=== PATIENT | male | born 1935 | race Caucasian/White ===

== ENCOUNTER 2024-07-23 09:28 | Observation (INO) | payer MEDICARE, OTHER, SELFPAY ==
[2024-07-23] VITALS (16 sets, daily range): BP systolic 108–193; BP diastolic 62–101; PULSE 65–90; RESP 11–20; TEMP 36.1–37.4; O2SAT 94–99; BMI 23.7
--- NOTE | 2024-07-23 09:30 | DI.CT.S_ITS ---
PROCEDURE: CT STROKE INDICATIONS: Slurred speech TECHNIQUE: Noncontrast 4.5 mm thick angled axial sections acquired from the foramen magnum to the vertex, with coronal reformats. For radiation dose reduction, the following was used: automated exposure control, adjustment of mA and/or kV according to patient size. COMPARISON: None. FINDINGS: Image quality: Excellent CSF spaces: Basal cisterns are patent. Lateral ventricles are symmetric. Volume: Vascular calcifications. Periventricular white matter disease is commonly seen with chronic microangiopathy. Volume loss is present. These findings are moderate Brain: No gross loss of solorio-white differentiation. Suspected basal ganglia mineralization. Craniofacial structures: Mild ethmoid mucosal thickening. IMPRESSION: No acute intracranial hemorrhage. If there is high concern for infarct, consider MRI. This study fulfills neurological imaging criteria for inclusion or exclusion of acute stroke therapies based on available published neurological imaging guidelines. Called to [place] by Jeremy at the timestamp below. Dictated by: Yadiel Luna M.D. on 07/23/2024 at 9:42 Approved by: Yadile Luna M.D. on 07/23/2024 at 9:45
--- NOTE | 2024-07-23 09:34 | ED.NEUROSD ---
HPI - Neuro Symptoms/Deficit General Chief Complaint: Neuro Symptoms/Deficit Stated Complaint: TIA Time Seen by Provider: 07/23/24 09:30 History of Present Illness HPI Narrative: Patient is a 88-year-old male history of TIA, hyperlipidemia, hypertension not on any blood thinners comes into the ED via EMS for evaluation of slurred speech and word-finding that has since resolved last known normal was approximately 30 minutes ago. To note patient initially evaluated with a systolic blood pressure of 226, does not take any antihypertensive. Patient was immediately brought to CT scan and stroke alert was called. At time of my evaluation patient is A&O x4, no focal deficits not complaining of any headache visual disturbances no chest pain shortness breath fever chills nausea vomiting abdominal pain or any other GI/ symptoms time. Related Data Home Medications Medication Instructions Recorded Confirmed aspirin 81 mg tablet,delayed 81 mg PO QDAY ##0 08/09/17 release atorvastatin 10 mg tablet (Lipitor) 10 mg PO QDAY ##0 08/09/17 losartan 50 mg tablet 50 mg PO QDAY ##0 08/09/17 multivitamin (Multiple Vitamins 1 tab PO QDAY ##0 08/09/17 tablet) omega 3-ohk-mvq-fish oil 1,000 mg 1,200 mg PO ##0 08/09/17 (120 mg-180 mg) capsule (Fish Oil) Allergies Allergy/AdvReac Type Severity Reaction Status Date / Time No Known Allergies Allergy Uncoded 01/30/18 13:03 Review of Systems Review of Systems Narrative: General: Denies fever, chills, weight loss HEENT: Denies headache, eye drainage, eye irritation, head trauma, sore throat, voice change Cardiovascular: Denies any chest pain, palpitations, shortness of breath, tachycardia Respiratory: Denies any shortness of breath, cough, wheeze, stridor GI/: Denies any abdominal pain, nausea, vomiting, diarrhea, bright red blood per rectum, melanotic stools, urinary frequency, urinary retention, dysuria, hematuria MSK: Denies any joint pain, muscle pains, swelling Skin: Denies any rashes, lesions, discoloration Neuro: Denies any headache, lightheadedness, dizziness, fainting, weakness, positive for resolved slurred speech word-finding issues Psych: Denies SI/HI Patient History Social History Smoking Status: Current some day smoker Exam Narrative Exam Narrative: General: Cooperative, comfortable, well-developed, not in acute distress HEENT: Normocephalic, atraumatic, PERRLA, normal sclera, eyelids normal, Neck: Active full range of motion, atraumatic Chest: Normal to inspection, negative crepitus, no overlying erythema ecchymosis Respiratory: Normal respiratory effort, not in acute respiratory distress, clear to auscultation bilaterally negative cough, wheeze, tachypnea, rhonchi, rales Cardiology: Regular rate rhythm negative gallop, murmur, rubs GI/: Normal to inspection, soft, nonrigid, no tenderness to palpation, exam deferred MSK: Full range of active range of motion of all 4 extremities, atraumatic Skin: No rashes lesions noted Neuro: Alert awake oriented x3, moves all 4 extremities spontaneously, cranial nerves intact, able to answer all questions appropriately follows commands appropriately, NIH of 0 Psych: Cooperative, negative suicidal or homicidal ideations Initial Vital Signs Initial Vital Signs: Vital Signs Pulse Rate 86 07/23/24 09:23 Respiratory Rate 16 07/23/24 09:23 Blood Pressure 136/99 H 07/23/24 09:23 Pulse Oximetry 98 07/23/24 09:23 Oxygen Delivery Method Room Air 07/23/24 09:23 Scores NIH Stroke Scale Level of Conciousness: Alert, keenly responsive Ask month/age: Answers both questions correctly. Open/close eyes, close hand: Performs both tasks correctly Best gaze horizontal: Normal Visual linn: No visual loss Facial palsy: Normal symetrical movement Left arm drift: No drift for full 10 sec Right arm drift: No drift for full 10 sec Left leg drift: No drift for full 5 sec Right leg drift: No drift for full 5 sec Limb ataxia: Absent Sensory on face/arms/legs: Normal, no sensory loss Best language: No aphasia, normal Dysarthria: Normal Extinction or inattention: No abnormality Total NIH Stroke scale score: 0 Course Orders Ordered: ED Orders 07/23/24 09:30 CT Stroke Stat Complete Blood Count AUTO DIFF Stat Comprehensive Metabolic Panel Stat Ethanol (ETOH) Stat PTT Partial Thromboplastin Dariel Stat Prothrombin Time INR Stat Troponin & CK Cardiac Panel Stat EKG-12 Lead Stat 07/23/24 09:55 COVID19 -Nasal RAPID Stat 07/23/24 10:00 CT angio head and neck Stat 07/23/24 10:40 Urinalysis and Microscopic Stat Urine Drug Screen, Rapid Stat Vital Signs Vital signs: Vital Signs - 8 hr 07/23/24 09:23 07/23/24 09:44 07/23/24 09:44 Pulse Rate 86 65 Respiratory Rate 16 Blood Pressure 136/99 H 136/99 H Pulse Oximetry 98 98 99 Oxygen Delivery Method Room Air 07/23/24 10:00 07/23/24 10:00 07/23/24 10:30 Pulse Rate 81 Respiratory Rate 11 L Blood Pressure 151/96 H 193/98 H Pulse Oximetry 97 Oxygen Delivery Method 07/23/24 10:30 07/23/24 11:00 07/23/24 11:01 Pulse Rate 78 78 75 Respiratory Rate 19 16 17 Blood Pressure Pulse Oximetry 98 97 97 Oxygen Delivery Method 07/23/24 11:01 07/23/24 11:30 07/23/24 11:30 Pulse Rate 75 Respiratory Rate 18 Blood Pressure 171/91 H 167/99 H Pulse Oximetry 96 Oxygen Delivery Method Room Air MDM - Neuro Symptoms/Deficit Differential Diagnosis Differential diagnosis: Likely subarachnoid hemorrhage, cerebrovascular accident, transient cerebral ischemia and other (ACS, electrolyte abnormality) Medical Records Attestation: I reviewed the patient's medical records. Lab Data 07/23/24 09:30 07/23/24 09:30 Labs: Lab Results 07/23/24 07/23/24 07/23/24 Range/Units 09:30 09:55 10:40 WBC 7.7 (4.5-11.0) X10^3/uL RBC 5.57 (4.5-5.9) X10^6/uL Hgb 16.7 (13.5-17.5) g/dL Hct 48.5 (41-53) % MCV 87.1 (80-100) fL MCH 30.0 (26-34) PG MCHC 34.4 (30-36) % RDW 13.8 (11.6-14.8) % Plt Count 180 (150-400) X10^3/uL Neut % (Auto) 59.6 (50-75) % Lymph % (Auto) 26.6 (25-40) % Gulf % (Auto) 8.5 (3-14) % Eos % (Auto) 4.1 H (2-4) % Baso % (Auto) 1.2 (0-2) % Neut # (Auto) 4600 (5434-6560) /uL Lymph # (Auto) 2100 (4535-1483) /uL [place] # (Auto) 700 (0-900) /uL Eos # (Auto) 300 (0-450) /uL Baso # (Auto) 100 (0-100) /uL PT 12.2 (9.4-12.5) SECONDS INR 1.1 (0.9-1.3) APTT 32 (25.1-36.5) SECONDS Sodium 134 L (137-145) mmol/L Potassium 3.9 (3.4-5.1) mmol/L Chloride 103 (98-107) mmol/L Carbon Dioxide 20 L (22-32) mmol/L BUN 20 (9-20) mg/dL Creatinine 1.10 (0.66-1.25) mg/dL Estimated GFR > 60 (>60) mL/min BUN/Creatinine Ratio 18.2 (6-22) Glucose 167 H (80-110) mg/dL Calcium 9.9 (8.4-10.2) mg/dL Total Bilirubin 2.0 H (0.2-1.3) mg/dL AST 26 (17-59) IU/L ALT 21 (<50) IU/L Alkaline Phosphatase 97 (38-126) U/L Total Creatine Kinase 38 L (55-170) U/L Troponin I < 0.012 (0.01-0.034) ng/mL Total Protein 7.9 (6.3-8.2) g/dL Albumin 4.4 (3.5-5.0) g/dL Globulin 3.5 (1.7-4.1) g/dL Albumin/Globulin Ratio 1.3 (1.0-2.8) Urine Color Yellow Urine Appearance Clear Urine pH 5.5 (4.5-8.0) Ur Specific [place] 1.010 (1.000-1.035) Urine Protein Negative (Negative) Urine Glucose (UA) Negative (Negative) g/dL Urine Ketones Negative (NEGATIVE) Urine Occult Blood Negative (Negative) Urine Nitrate Negative (Negative) Urine Bilirubin Negative (NEGATIVE) Urine Urobilinogen 0.2 (0.2) E.U./dL Ur Leukocyte Esterase Negative (NEGATIVE) Urine RBC None seen (0-5/HPF) Urine WBC None seen (0-5/HPF) Ur Squamous Epith Cells None seen (0-5/HPF) Urine Bacteria None seen (None) Ur Culture Indicated? Cult not indicated Vol Urine Centrifuged 10ml (spun) U Opiates 300ng/mL cut Negative (Negative) Ur Oxycodone Screen Negative (Negative) Urine Methadone Screen Negative (Negative) Ur Barbiturates Screen Negative (Negative) U Tricyclic Antidepress Negative (Negative) Ur Phencyclidine Scrn Negative (Negative) Ur Amphetamines Screen Negative (Negative) U Methamphetamines Scrn Negative (Negative) Ur MDMA Scrn (Ecstasy) Negative (Negative) U Benzodiazepines Scrn Negative (Negative) Urine Cocaine Screen Negative (Negative) U Marijuana (THC) Screen Negative (Negative) Urine Specific [place] (Normal) Ethyl Alcohol 30 H ( - 10) mg/dL Ur Creatinine (Normal) SARS-CoV-2 (PCR) Negative (Negative) 07/23/24 Range/Units 10:40 WBC (4.5-11.0) X10^3/uL RBC (4.5-5.9) X10^6/uL Hgb (13.5-17.5) g/dL Hct (41-53) % MCV (80-100) fL MCH (26-34) PG MCHC (30-36) % RDW (11.6-14.8) % Plt Count (150-400) X10^3/uL Neut % (Auto) (50-75) % Lymph % (Auto) (25-40) % [place] % (Auto) (3-14) % Eos % (Auto) (2-4) % Baso % (Auto) (0-2) % Neut # (Auto) (6048-2900) /uL Lymph # (Auto) (2572-7151) /uL [place] # (Auto) (0-900) /uL Eos # (Auto) (0-450) /uL Baso # (Auto) (0-100) /uL PT (9.4-12.5) SECONDS INR (0.9-1.3) APTT (25.1-36.5) SECONDS Sodium (137-145) mmol/L Potassium (3.4-5.1) mmol/L Chloride (98-107) mmol/L Carbon Dioxide (22-32) mmol/L BUN (9-20) mg/dL Creatinine (0.66-1.25) mg/dL Estimated GFR (>60) mL/min BUN/Creatinine Ratio (6-22) Glucose (80-110) mg/dL Calcium (8.4-10.2) mg/dL Total Bilirubin (0.2-1.3) mg/dL AST (17-59) IU/L ALT (<50) IU/L Alkaline Phosphatase (38-126) U/L Total Creatine Kinase (55-170) U/L Troponin I (0.01-0.034) ng/mL Total Protein (6.3-8.2) g/dL Albumin (3.5-5.0) g/dL Globulin (1.7-4.1) g/dL Albumin/Globulin Ratio (1.0-2.8) Urine Color Urine Appearance Urine pH Normal (4.5-8.0) Ur Specific [place] (1.000-1.035) Urine Protein (Negative) Urine Glucose (UA) (Negative) g/dL Urine Ketones (NEGATIVE) Urine Occult Blood (Negative) Urine Nitrate (Negative) Urine Bilirubin (NEGATIVE) Urine Urobilinogen (0.2) E.U./dL Ur Leukocyte Esterase (NEGATIVE) Urine RBC (0-5/HPF) Urine WBC (0-5/HPF) Ur Squamous Epith Cells (0-5/HPF) Urine Bacteria (None) Ur Culture Indicated? Vol Urine Centrifuged U Opiates 300ng/mL cut (Negative) Ur Oxycodone Screen (Negative) Urine Methadone Screen (Negative) Ur Barbiturates Screen (Negative) U Tricyclic Antidepress (Negative) Ur Phencyclidine Scrn (Negative) Ur Amphetamines Screen (Negative) U Methamphetamines Scrn (Negative) Ur MDMA Scrn (Ecstasy) (Negative) U Benzodiazepines Scrn (Negative) Urine Cocaine Screen (Negative) U Marijuana (THC) Screen (Negative) Urine Specific [place] Normal (Normal) Ethyl Alcohol ( - 10) mg/dL Ur Creatinine Normal (Normal) SARS-CoV-2 (PCR) (Negative) Point of Care Testing Glucose POC 162 Urine Dip Bedside Urine Glucose Negative Bedside Urine Bilirubin - Negative Bedside Urine Ketone - Negative Urine Specific [place] 1.015 Bedside Urine Occult Blood - Negative Bedside Urine pH 5.5 Bedside Urine Protein - Negative Bedside Urine Urobilinogen - Negative Bedside Urine Nitrite - Negative Bedside Urine Leukocytes - Negative Esterase Imaging Data CT scan - head: Radiologist's Impression: PROCEDURE: CT STROKE INDICATIONS: Slurred speech TECHNIQUE: Noncontrast 4.5 mm thick angled axial sections acquired from the foramen magnum to the vertex, with coronal reformats. For radiation dose reduction, the following was used: automated exposure control, adjustment of mA and/or kV according to patient size. COMPARISON: None. FINDINGS: Image quality: Excellent CSF spaces: Basal cisterns are patent. Lateral ventricles are symmetric. Volume: Vascular calcifications. Periventricular white matter disease is commonly seen with chronic microangiopathy. Volume loss is present. These findings are moderate Brain: No gross loss of solorio-white differentiation. Suspected basal ganglia mineralization. Craniofacial structures: Mild ethmoid mucosal thickening. IMPRESSION: No acute intracranial hemorrhage. If there is high concern for infarct, consider MRI. This study fulfills neurological imaging criteria for inclusion or exclusion of acute stroke therapies based on available published neurological imaging guidelines. CT angio head and neck: Radiologist's Impression: PROCEDURE: CT ANGIO HEAD AND NECK INDICATIONS: Slurred speech TECHNIQUE: After the administration of intravenous contrast, 1 mm thick sections acquired from the aortic arch through the [place] of [place]. 3-dimensional jyukvsh-cppnwphgs-iqbrrhcwzv (MIP) and/or volume rendering reformats were acquired of the central intracranial vasculature and neck separately. For radiation dose reduction, the following was used: automated exposure control, adjustment of mA and/or kV according to patient size. COMPARISON: [facility], CT, CT STROKE, 07/23/2024, 9:36. FINDINGS: Image quality: Diagnostic. BRAIN: CSF spaces: Ventricles are normal in size and shape. Basal cisterns are patent. No extra-axial fluid collections. Brain: No significant abnormality of the brain can be seen. Skull and face: Calvarium and facial bones appear intact, without suspicious lesions. Orbits appear normal. Sinuses: Sinuses and mastoids are clear. HEAD CT ANGIOGRAPHY: Anterior circulation: Intracranial internal carotid arteries are normal in size and flow. The flow within the paired anterior cerebral arteries is normal and symmetric. The flow within the middle cerebral arteries is normal and symmetric. The anterior communicating artery is seen. No aneurysms are seen. Posterior circulation: Visualized portions of the vertebral arteries demonstrate normal caliber, and join to form a normal appearing basilar artery. Flow within the posterior cerebral arteries is normal and symmetric. No aneurysms are seen. NECK CT ANGIOGRAPHY: Carotid system: The great vessels demonstrate a conventional anatomy as they arise from the aortic arch. The origins of the common carotid arteries appear patent. The common carotid arteries demonstrate normal caliber and courses. The bifurcation regions are both involved by significantly prominent atherosclerotic calcific and soft plaquing but appear patent. There is less than 50% stenosis on the left and approximately 50-60% stenosis on right as result at the bifurcation The internal carotid arteries demonstrate normal calibers and courses. Posterior circulation: The origins of the vertebral arteries both appear widely patent. The more superior extracranial portions of both vertebral arteries also demonstrate normal courses and calibers. They join to form a normal appearing basilar artery. Soft tissues: Visualized neck soft tissues demonstrate no suspicious abnormalities. Bones: No suspicious bony lesions. Visualized cervical spine appears normally aligned. IMPRESSION: No significant intracranial arterial abnormality is seen. Within the neck there is right greater than left calcific and soft plaquing with approximately 50-60% stenosis at the carotid bifurcation on the right and slightly less than 50% stenosis on the left. ECG Data Attestation: I personally reviewed and interpreted this ECG as follows: Interpretation: EKG interpreted ED physician sinus at 81 beats per minute, occasional PVC noted, normal axis nonspecific ST changes no STEMI MDM Narrative Medical decision making narrative: Patient is a 88-year-old male history of TIA, hypertension, hyperlipidemia presents to the ED via EMS for evaluation of slurred speech and word-finding difficulty that has since resolved last known normal was around 9:00 a.m.. Patient was sent directly to CT scan for stroke alert. States that he has not been taking any of his medications for about a year. Given patient with symptoms of TIA patient will require admission for TIA workup 0943: Discussed case with radiologist Dr. Luna, states negative CT head. 1011: Additional information was obtained by patient states that he does drink his coffee with a little bit of black Velvet whiskey on a daily basis. He also states that he has not been taking any of his medications for over a year this includes his statin and his antihypertensives, on re-evaluation patient's blood pressure improved without any administration of medication. The patient's management plan was discussed Dr. Ritter, who agrees to admit the patient to their service and assumes care of this patient at this time. Full admission orders will be placed by the primary team. Discharge Plan Departure Admit Date/Time: 07/23/24 11:52 Admit Provider: David Ritter
[2024-07-23 09:45] LABS: Add Manual Diff / Slide Review NO; Basophils Absolute Auto 100 /uL (0-100); Basophils Percent Auto 1.2 % (0-2); Eosinophils Absolute Auto 300 /uL (0-450); Eosinophils Percent Auto 4.1 % (2-4); Hematocrit 48.5 % (41-53); Hemoglobin 16.7 g/dL (13.5-17.5); Lymphocytes Absolute Auto 2100 /uL (1100-4500); Lymphocytes Percent Auto 26.6 % (25-40); Mean Corpuscular HGB Conc 34.4 % (30-36); Mean Corpuscular Volume 87.1 fL (80-100); Monocytes Absolute Auto 700 /uL (0-900); Monocytes Percent Auto 8.5 % (3-14); Neutrophils Absolute Auto 4600 /uL (1500-7000); Neutrophils Percent Auto 59.6 % (50-75); Platelet Count 180 X10^3/uL (150-400); Red Blood Cell Count 5.57 X10^6/uL (4.5-5.9); Red Cell Distribution Width 13.8 % (11.6-14.8); White Blood Cell Count 7.7 X10^3/uL (4.5-11.0)
--- NOTE | 2024-07-23 09:47 | EKG_ITS ---
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
--- NOTE | 2024-07-23 09:52 | PC.NURSE ---
Patient was at automotive store when he had a sudden onset of mumbled speech, difficulty finding words and balance issues. patient states he felt the right side of his face was having difficulty moving. Upon arrival of EMS symptoms resolved. Hypertensive per EMS. Upon arrival to ER asymptomatic.
[2024-07-23 09:53] LABS: INR 1.1 (0.9-1.3); Prothrombin Time 12.2 SECONDS (9.4-12.5)
[2024-07-23 09:55] LABS: PTT Partial Thromboplastin Tim 32 SECONDS (25.1-36.5)
[2024-07-23 09:58] LABS: Alanine Aminotransferase 21 IU/L (<50); Albumin 4.4 g/dL (3.5-5.0); Albumin Globulin Ratio 1.3 (1.0-2.8); Alkaline Phosphatase 97 U/L (38-126); Aspartate Aminotransferase 26 IU/L (17-59); BUN Creatinine Ratio 18.2 (6-22); Blood Urea Nitrogen 20 mg/dL (9-20); Calcium 9.9 mg/dL (8.4-10.2); Carbon Dioxide 20 mmol/L (22-32); Chloride 103 mmol/L (98-107); Creatine Kinase 38 U/L (55-170); Estimated Glomerular Filt Rate > 60 mL/min (>60); Ethanol (ETOH) 30 mg/dL; Globulin 3.5 g/dL (1.7-4.1); Glucose 167 mg/dL (80-110); HEMOLYSIS 15 (0-50); Potassium 3.9 mmol/L (3.4-5.1); Sodium 134 mmol/L (137-145); Total Protein 7.9 g/dL (6.3-8.2)
--- NOTE | 2024-07-23 10:00 | DI.CT.S_ITS ---
PROCEDURE: CT ANGIO HEAD AND NECK INDICATIONS: Slurred speech TECHNIQUE: After the administration of intravenous contrast, 1 mm thick sections acquired from the aortic arch through the [place] of [place]. 3-dimensional reeldqg-rhnhgsnad-srhobaveii (MIP) and/or volume rendering reformats were acquired of the central intracranial vasculature and neck separately. For radiation dose reduction, the following was used: automated exposure control, adjustment of mA and/or kV according to patient size. COMPARISON: [facility], CT, CT STROKE, 07/23/2024, 9:36. FINDINGS: Image quality: Diagnostic. BRAIN: CSF spaces: Ventricles are normal in size and shape. Basal cisterns are patent. No extra-axial fluid collections. Brain: No significant abnormality of the brain can be seen. Skull and face: Calvarium and facial bones appear intact, without suspicious lesions. Orbits appear normal. Sinuses: Sinuses and mastoids are clear. HEAD CT ANGIOGRAPHY: Anterior circulation: Intracranial internal carotid arteries are normal in size and flow. The flow within the paired anterior cerebral arteries is normal and symmetric. The flow within the middle cerebral arteries is normal and symmetric. The anterior communicating artery is seen. No aneurysms are seen. Posterior circulation: Visualized portions of the vertebral arteries demonstrate normal caliber, and join to form a normal appearing basilar artery. Flow within the posterior cerebral arteries is normal and symmetric. No aneurysms are seen. NECK CT ANGIOGRAPHY: Carotid system: The great vessels demonstrate a conventional anatomy as they arise from the aortic arch. The origins of the common carotid arteries appear patent. The common carotid arteries demonstrate normal caliber and courses. The bifurcation regions are both involved by significantly prominent atherosclerotic calcific and soft plaquing but appear patent. There is less than 50% stenosis on the left and approximately 50-60% stenosis on right as result at the bifurcation The internal carotid arteries demonstrate normal calibers and courses. Posterior circulation: The origins of the vertebral arteries both appear widely patent. The more superior extracranial portions of both vertebral arteries also demonstrate normal courses and calibers. They join to form a normal appearing basilar artery. Soft tissues: Visualized neck soft tissues demonstrate no suspicious abnormalities. Bones: No suspicious bony lesions. Visualized cervical spine appears normally aligned. IMPRESSION: No significant intracranial arterial abnormality is seen. Within the neck there is right greater than left calcific and soft plaquing with approximately 50-60% stenosis at the carotid bifurcation on the right and slightly less than 50% stenosis on the left. Any quantitative measurements of stenosis were performed using NASCET criteria. Dictated by: Juanito Cantrell M.D. on 07/23/2024 at 10:32 Approved by: Juanito Cantrell M.D. on 07/23/2024 at 10:34
[2024-07-23 10:09] LABS: Troponin I < 0.012 ng/mL (0.01-0.034)
[2024-07-23 10:22] LABS: COVID19 -Nasal RAPID Negative (Negative)
[2024-07-23 10:51] LABS: Appearance Urine UA CLEAR; Bilirubin Urine UA NEGATIVE (NEGATIVE); Color Urine UA YELLOW; Glucose Urine UA NEGATIVE (Negative); Ketones Urine UA NEGATIVE (NEGATIVE); Leukocyte Esterase Urine UA NEGATIVE (NEGATIVE); Nitrite Urine UA NEGATIVE (Negative); Occult Blood Urine UA NEGATIVE (Negative); Protein Urine UA NEGATIVE (Negative); Urobilinogen Urine UA 0.2 E.U./dL (0.2); pH Urine UA 5.5 (4.5-8.0)
[2024-07-23 10:54] LABS: Ur Creatinine Normal (Normal); Ur Specific Gravity Normal (Normal); Urine Amphetamines Negative (Negative); Urine Barbiturates Negative (Negative); Urine Benzodiazepines Negative (Negative); Urine Cocaine Negative (Negative); Urine MDMA Negative (Negative); Urine Methadone Negative (Negative); Urine Methamphetamines Negative (Negative); Urine Opiates Negative (Negative); Urine Oxycodone Negative (Negative); Urine Phencyclidine Negative (Negative); Urine THC Negative (Negative); Urine Tricyclic Antidepressant Negative (Negative); Urine pH Normal (Normal)
[2024-07-23 10:56] LABS: Urine Volume 10mL (spun)
[2024-07-23 10:57] LABS: Bacteria Urine None Seen; Culture Indicated Urine Cult Not Indicated; RBC Urine None Seen (0-5/HPF); Squamous Epithelial Cell Urine None Seen (0-5/HPF); WBC Urine None Seen (0-5/HPF)
--- NOTE | 2024-07-23 12:30 | DI.MRI.S_ITS ---
PROCEDURE: MR HEAD/BRAIN WO CON INDICATIONS: TIA vs CVA, facial droop TECHNIQUE: Non-contrast axial T1 spin echo, axial T2 fast spin echo, sagittal and axial FLAIR, coronal T2 fast spin echo, axial gradient echo, axial diffusion and ADC through the brain. COMPARISON: [facility], CT, CT STROKE, 07/23/2024, 9:36. FINDINGS: Image quality: Excellent. CSF spaces: Ventricles appear symmetric in size and shape. Basal cisterns are patent. No extra-axial fluid collections. Brain: No intracranial bleeds or mass effects. There is cerebral volume loss for age. There are periventricular and deep white matter chronic small vessel ischemic changes. Brainstem appears normal. Diffusion-weighted images show no acute infarct. No chronic ischemic insults. Normal intravascular flow voids are present. Skull and face: Calvarial bone marrow is normal in signal. Bilateral lens replacements. Otherwise, the orbits are unremarkable. Sinuses: Mild mucosal thickening of the ethmoid air cells. Left maxillary sinus mucous retention cyst. The mastoids are clear. IMPRESSION: No acute or subacute infarct. No acute intracranial abnormalities. Age-related global volume loss and chronic microvascular ischemic changes are present. Dictated by: Stan Fernandez M.D. on 07/23/2024 at 15:15 Approved by: Stan Fernandez M.D. on 07/23/2024 at 15:17
[2024-07-23] MEDS: CLOPIDOGREL 75 MG TABLET 300 MG PO (13:59)
[2024-07-23] MEDS: ASPIRIN 81 MG CHEW TAB 324 MG PO (13:59)
--- NOTE | 2024-07-23 15:26 | PM.HP.1 ---
History of Present Illness History of Present Illness Date Patient Seen: 07/23/24 Time Patient Seen: 15:26 Chief complaint: TIA Narrative: This is an 88-year-old male with a past medical history of hypertension, hyperlipidemia, prior TIA who presented after a 5 minute episode of facial droop and slurred speech. He denied any facial numbness, unilateral weakness or numbness. He states his prior episodes were many years ago. Follows with a primary care provider in [place], and has been off of his medications for approximately a year. He has no recent complaints of chest pain, shortness on breath, palpitations. In the emergency room, the patient was hypertensive, but the remainder of his vitals were unremarkable. Lab work is also unremarkable he does have an elevated bilirubin which appears chronic. His alcohol level was 30. He denies any shaking or confusion when he stops drinking. Urinalysis was unremarkable as was a urine drug screen. COVID-19 was testing was negative. He was admitted for further evaluation for probable TIA with MRI and observation overnight. [facility] Medical History (Updated 07/23/24 @ 15:33 by David Ritter DO) TIA (transient ischemic attack) HTN (hypertension) Social History household members: spouse Smoking Status: Current some day smoker Meds Home Medications and Allergies Home Medications Medication Instructions Recorded Confirmed Type multivitamin (Multiple Vitamins 1 tab PO QDAY ##0 08/09/17 History tablet) Allergies Allergy/AdvReac Type Severity Reaction Status Date / Time No Known Drug Allergies Allergy Verified 07/23/24 13:25 Review of Systems Review of Systems Narrative: All other systems reviewed with the patient and are negative unless otherwise stated. Exam Vital Signs (past 8 hours): - 07/23/24 09:23 07/23/24 09:44 07/23/24 09:44 Temperature Pulse Rate 86 65 Respiratory Rate 16 Blood Pressure 136/99 H 136/99 H Pulse Oximetry 98 98 99 Oxygen Delivery Method Room Air Oxygen Flow Rate 07/23/24 10:00 07/23/24 10:00 07/23/24 10:30 Temperature Pulse Rate 81 Respiratory Rate 11 L Blood Pressure 151/96 H 193/98 H Pulse Oximetry 97 Oxygen Delivery Method Oxygen Flow Rate 07/23/24 10:30 07/23/24 11:00 07/23/24 11:01 Temperature Pulse Rate 78 78 75 Respiratory Rate 19 16 17 Blood Pressure Pulse Oximetry 98 97 97 Oxygen Delivery Method Oxygen Flow Rate 07/23/24 11:01 07/23/24 11:30 07/23/24 11:30 Temperature Pulse Rate 75 Respiratory Rate 18 Blood Pressure 171/91 H 167/99 H Pulse Oximetry 96 Oxygen Delivery Method Room Air Oxygen Flow Rate 07/23/24 12:00 07/23/24 12:00 07/23/24 12:30 Temperature Pulse Rate 74 Respiratory Rate 11 L Blood Pressure 168/101 H 192/95 H Pulse Oximetry 97 Oxygen Delivery Method Oxygen Flow Rate 07/23/24 12:30 07/23/24 12:40 07/23/24 12:45 Temperature 97.9 F 97.4 F L Pulse Rate 81 90 Respiratory Rate 20 16 Blood Pressure 153/64 H Pulse Oximetry 97 99 Oxygen Delivery Method Oxygen Flow Rate 0 07/23/24 14:02 07/23/24 14:02 Temperature 97.0 F L Pulse Rate 84 Respiratory Rate 16 Blood Pressure 179/99 H Pulse Oximetry 99 99 Oxygen Delivery Method Room Air Oxygen Flow Rate 0 0 Oxygen Delivery Method Room Air Oxygen Flow Rate 0 Narrative Exam Narrative: General:? Patient is well developed and well nourished, in no distress at this time. HEENT:? Normocephalic, atraumatic, extraocular muscles intact, oral pharynx is clear and mucous membranes are moist. Neck: supple and symmetric, trachea is midline, no cervical adenopathy. Negative for JVD Chest:? Normal AP diameter and contour without kyphoscoliosis, no tachypnea, equal chest rise bilaterally. Lungs:? CTA b/l no wheezing rhonchi or rales. Cardio:?RRR no m/r/g. Abdomen: S NT ND. No CVA tenderness. Musculoskeletal:? Muscle strength and tone are equal within normal limits, no deformity. Extremities: No edema or joint effusions. No cyanosis or clubbing. Skin:? Pale,? Warm to touch,dry and intact without rashes, ulcerations or petechiae.? Neuro:? Alert and orientated x3,? sensation to touch intact in all extremities, no gross deficits noted of cranial nerves. Psych:? Patient has a well-kept appearance, appropriate affect, mental status attitude thought context and judgment are appropriate for age. Objective ECG Impression: Normal sinus rhythm, no acute ischemia, right bundle branch block, occasional PVC as interpreted by me Labs 10/02/24 09:30 07/23/24 09:30 Labs: Laboratory Results - last 24 hr 07/23/24 07/23/24 07/23/24 09:30 09:55 10:40 WBC 7.7 RBC 5.57 Hgb 16.7 Hct 48.5 MCV 87.1 MCH 30.0 MCHC 34.4 RDW 13.8 Plt Count 180 Neut % (Auto) 59.6 Lymph % (Auto) 26.6 [place] % (Auto) 8.5 Eos % (Auto) 4.1 H Baso % (Auto) 1.2 Neut # (Auto) 4600 Lymph # (Auto) 2100 [place] # (Auto) 700 Eos # (Auto) 300 Baso # (Auto) 100 PT 12.2 INR 1.1 APTT 32 Sodium 134 L Potassium 3.9 Chloride 103 Carbon Dioxide 20 L BUN 20 Creatinine 1.10 Estimated GFR > 60 BUN/Creatinine Ratio 18.2 Glucose 167 H Calcium 9.9 Total Bilirubin 2.0 H AST 26 ALT 21 Alkaline Phosphatase 97 Total Creatine Kinase 38 L Troponin I < 0.012 Total Protein 7.9 Albumin 4.4 Globulin 3.5 Albumin/Globulin Ratio 1.3 Urine Color Yellow Urine Appearance Clear Urine pH 5.5 Ur Specific [place] 1.010 Urine Protein Negative Urine Glucose (UA) Negative Urine Ketones Negative Urine Occult Blood Negative Urine Nitrate Negative Urine Bilirubin Negative Urine Urobilinogen 0.2 Ur Leukocyte Esterase Negative Urine RBC None seen Urine WBC None seen Ur Squamous Epith Cells None seen Urine Bacteria None seen Ur Culture Indicated? Cult not indicated Vol Urine Centrifuged 10ml (spun) U Opiates 300ng/mL cut Negative Ur Oxycodone Screen Negative Urine Methadone Screen Negative Ur Barbiturates Screen Negative U Tricyclic Antidepress Negative Ur Phencyclidine Scrn Negative Ur Amphetamines Screen Negative U Methamphetamines Scrn Negative Ur MDMA Scrn (Ecstasy) Negative U Benzodiazepines Scrn Negative Urine Cocaine Screen Negative U Marijuana (THC) Screen Negative Urine Specific [place] Ethyl Alcohol 30 H Ur Creatinine SARS-CoV-2 (PCR) Negative 07/23/24 10:40 WBC RBC Hgb Hct MCV MCH MCHC RDW Plt Count Neut % (Auto) Lymph % (Auto) [place] % (Auto) Eos % (Auto) Baso % (Auto) Neut # (Auto) Lymph # (Auto) [place] # (Auto) Eos # (Auto) Baso # (Auto) PT INR APTT Sodium Potassium Chloride Carbon Dioxide BUN Creatinine Estimated GFR BUN/Creatinine Ratio Glucose Calcium Total Bilirubin AST ALT Alkaline Phosphatase Total Creatine Kinase Troponin I Total Protein Albumin Globulin Albumin/Globulin Ratio Urine Color Urine Appearance Urine pH Normal Ur Specific [place] Urine Protein Urine Glucose (UA) Urine Ketones Urine Occult Blood Urine Nitrate Urine Bilirubin Urine Urobilinogen Ur Leukocyte Esterase Urine RBC Urine WBC Ur Squamous Epith Cells Urine Bacteria Ur Culture Indicated? Vol Urine Centrifuged U Opiates 300ng/mL cut Ur Oxycodone Screen Urine Methadone Screen Ur Barbiturates Screen U Tricyclic Antidepress Ur Phencyclidine Scrn Ur Amphetamines Screen U Methamphetamines Scrn Ur MDMA Scrn (Ecstasy) U Benzodiazepines Scrn Urine Cocaine Screen U Marijuana (THC) Screen Urine Specific [place] Normal Ethyl Alcohol Ur Creatinine Normal SARS-CoV-2 (PCR) Assessment & Plan Assessment & Plan narrative: 1. TIA - give load of asa and plavix. Continue aspirin 81 mg daily and plavix 75 mg daily for 21 days. Followed by lifelong aspirin. - increase statin to 80 mg nightly, to continue lifelong as well - unable to locate any outside TTE, will re-order, patient states has been >5 years since last evaluation / TIA. - monitor BP - MRI is negative for any acute infarcts. - TSH, A1c, lipids ordered. 2. HTN - previously on antihypertensives, will restart if needed depending on trend over the course of observation. 3. Elevated bilirubin - no abdominal symptoms, no further evaluation warranted at this time. 4. EtOH use - no prior history of withdrawals. monitor. no need for CIWA at this time. Code: Full, surrogate is patient's spouse DVT: Lovenox daily I have utilized all available immediate resources to obtain, update, or review the patient's current medications. Dispo: patient admitted under inpatient status. Unclear if will be able to discharge home or possible SNF, will have PT/OT evaluations. Additional history obtained via discussions with the ER provider. These discussions contributed to the creation of the above assessment and plan. I have reviewed patient's presenting documentation, labs, and imaging personally. Time-Based Coding :: [TOTAL MINUTES] spent with patient and on the chart (including review of chart, obtaining history, exam, reviewing outside data, placing orders, documenting exam and treatment plan, and counseling patient) on [DATE]. Quality VTE Deep Vein Thrombosis/Pulmonary Embolism Present on Admission: No
--- NOTE | 2024-07-23 15:38 | DI.ECHO.S_ITS ---
Only +---------+ Hospital : : [address] : : [place] : : [id number] : : Phone: [phone] Echocardiogram Report + + :Name: MONCHO NIXON Study Date: 07/23/2024 Height: 75 in : :[facility] ReadingLocation: Weight: 190 lb : : Gender: Male BSA: 2.1 m2 : :: 1935 Age: 88 yrs BP: 153/64 mmHg: :Reason For Study: TIA : :Ordering Physician: LEXUS, : :MINA CALLAHAN Performed By: Nicole Reddy : :Referring: MINA ALBERTS : + + Interpretation Summary 1. Normal LV contractility. EF > 55%. No WMA. Mild cLVH. Grade 1 diastolic dysfunction. 2. Normal RV contractility. 3. Normal chamber sizes. 4. No significant valvular abnormalities. 5. No obvious intracardiac shunts. 6. No obvious intracardiac masses/thrombi. 7. No hemodynamically significant pericardial effusion. Conclusion: Normal biventricular systolic function without significant valvular abnormalities. Procedure: A two-dimensional transthoracic echocardiogram with color flow and Doppler was performed. The study was done portably. The study quality was technically difficult. There is no prior echocardiogram noted for this patient. The patient was in sinus rhythm with heart rates between 66-74 bpm during the exam. The patient had occasional PVCs during the exam. Left Ventricle: The left ventricle is normal in size. Left ventricular wall thickness is mildly increased. The ejection fraction is estimated to be 55- 60%. Diastolic parameters suggest a relaxation abnormality of the left ventricle, consistent with probable normal filling pressures. Right Ventricle: The right ventricle is normal in size and function. Atria: Both atria are normal in size. There is no Doppler evidence for an interatrial shunt. Mitral Valve: There is moderate mitral annular calcification. The mitral valve leaflets are moderately calcified. Reduced leaflet mobility noted on the anterior mitral leaflet . Calcified noticed on the Aortic-Mitral curtain. There is no mitral valve stenosis. There is trace mitral regurgitation. Aortic Valve: The aortic valve is trileaflet. The aortic valve is moderately calcified. Reduced leaflet mobility noted in the right coronary cusp. There is no aortic valve stenosis. No aortic regurgitation is present. Tricuspid Valve: The tricuspid valve leaflets are thin and pliable. There is trace tricuspid regurgitation. The right ventricular systolic pressure is estimated to be at least 18 mmHg based on an estimated right atrial pressure of 3 mm Hg. Pulmonic Valve: The pulmonic valve is not well visualized. There is a trace or physiologic amount of pulmonic regurgitation. Great Vessels: The aortic root is normal size. The ascending aorta is normal in size. The aortic arch is normal in size. The pulmonary is not well visualized. The IVC is of normal diameter and collapses greater than 50% with a sniff. This suggests a low right atrial pressure of 3 mm Hg. MMode/2D Measurements & Calculations LVIDd: 4.1 cm LVOT diam: 2.2 cm LVIDs: 3.2 cm Ao root diam: 3.4 cm FS: 21.9 % asc Aorta Diam: 3.4 cm IVSd: 1.1 cm Ao Arch Diam (Prox Trans): 3.3 cm LVPWd: 1.1 cm LV boyd. diameter/BSA (cm/m^2): 1.9 LV sys. diameter/BSA (cm/m^2): 1.5 LA A2 area: 15.4 cm2 RA long axis: 4.6 cm LA A4 area: 11.7 cm2 RA area: 14.7 cm2 LA length (vol): 4.5 cm RA vol: 39.8 ml LA vol: 33.9 ml RA : 18.5 ml/m2 LA vol index: 15.8 ml/m2 IVC diam: 1.3 cm TAPSE: 2.4 cm LVAd ap4: 30.7 cm2 LVAs ap4: 22.8 cm2 LVLs ap4: 7.7 cm LVAd ap2: 34.0 cm2 LVLd ap2: 8.5 cm LVAs ap2: 27.0 cm2 LVLs ap2: 7.9 cm Doppler Measurements & Calculations Ao V2 max: 168.9 cm/sec LVOT Max Spencer: 82.2 cm/sec Ao V2 mean: 115.1 cm/sec LV V1 max P.7 mmHg Ao max P.4 mmHg LV V1 VTI: 15.3 cm Ao mean P.1 mmHg ARTHUR(I,D): 1.7 cm2 Ao V2 VTI: 34.5 cm ARTHUR(V,D): 1.9 cm2 sev ratio: 0.44 ARTHUR indexed to BSA (cm^2/m^2): 0.81 MV E max spencer: 52.8 cm/sec TR max spencer: 198.6 cm/sec MV A max spencer: 109.8 cm/sec TR max P.8 mmHg MV E/A: 0.48 PA pr(Accel): 27.6 mmHg Med Peak E' Spencer: 4.9 cm/sec E/E' med: 10.9 Lat Peak E' Spencer: 6.5 cm/sec E/E' lat: 8.1 E/e' average: 9.5 MV dec time: 0.28 sec SV(LVOT): 59.9 ml Reading Physician:
[2024-07-23] MEDS: INFLUENZA HD VACCINE 0.5 ML SYRINGE IM (16:42)
[2024-07-24 03:00] VITALS: BP 110/58; PULSE 83; RESP 16; TEMP 36.7; O2SAT 96
[2024-07-24 06:33] VITALS: BP 116/68; PULSE 74; RESP 18; TEMP 36.3; O2SAT 96
[2024-07-24 08:00] VITALS: BP 144/89; PULSE 74; RESP 14; TEMP 36.2; O2SAT 97
[2024-07-24] MEDS: ASPIRIN EC 81 MG TABLET PO (08:02)
--- NOTE | 2024-07-24 08:32 | P.DS_ITS ---
History of Present Illness History of Present Illness Date Patient Seen: 07/24/24 Time Patient Seen: 08:32 Chief complaint: TIA Narrative: This is an 88-year-old male with a past medical history of hypertension, hyperlipidemia, prior TIA who presented after a 5 minute episode of facial droop and slurred speech. He denied any facial numbness, unilateral weakness or numbness. He states his prior episodes were many years ago. Follows with a primary care provider in [place], and has been off of his medications for approximately a year. He has no recent complaints of chest pain, shortness on breath, palpitations. In the emergency room, the patient was hypertensive, but the remainder of his vitals were unremarkable. Lab work is also unremarkable he does have an elevated bilirubin which appears chronic. His alcohol level was 30. He denies any shaking or confusion when he stops drinking. Urinalysis was unremarkable as was a urine drug screen. COVID-19 was testing was negative. He was admitted for further evaluation for probable TIA with MRI and observation overnight. Discharge Providers Provider Date of admission: 07/23/24 11:52 Discharge Date: 07/24/24 Primary care physician: Judy Carlson PA-C Discharge provider: David Ritter DO Summary Hospital Course Discharge Diagnosis: 1. TIA 2. Elevated bilirubin, chronic 3. Alcohol use Hospital Course: This is an 88-year-old male with a past medical history of prior hypertension, previous TIA, and alcohol use presented with a 10 minute episode of slurred speech and facial droop. Symptoms completely resolved and he had no further stroke symptoms following this initial episode. Telemetry was unremarkable over the course of his stay. Echocardiogram showed a normal ejection fraction, no significant valvular abnormalities, nor evidence of a PFO. MRI was performed and was unremarkable. To an ABCD2 score of 4, the patient was started on DAPT for 21 days and statin therapy. After these 21 days, recommend lifelong aspirin and statin which was discussed with the patient as he had stopped this a year ago after a prior TIA. He showed no evidence of withdrawal during his stay. Overnight during his stay, his blood pressures were actually noted to be on the lower side despite presenting with elevated blood pressures. Given this, no antihypertensive therapy is recommended at the time of discharge. Time Spent with Patient Time spent: Greater than 30 minutes Exam Vital Signs (past 8 hours): - 07/24/24 03:00 07/24/24 06:33 07/24/24 08:00 Temperature 98.0 F 97.4 F L 97.1 F L Pulse Rate 83 74 74 Respiratory Rate 16 18 14 Blood Pressure 110/58 L 116/68 144/89 H Pulse Oximetry 96 96 97 Oxygen Flow Rate 0 Oxygen Delivery Method Room Air Oxygen Flow Rate 0 Narrative Exam Narrative: General:? Patient is well developed and well nourished, in no distress at this time. HEENT:? Normocephalic, atraumatic, extraocular muscles intact, oral pharynx is clear and mucous membranes are moist. Neck: supple and symmetric, trachea is midline, no cervical adenopathy. Negative for JVD Chest:? Normal AP diameter and contour without kyphoscoliosis, no tachypnea, equal chest rise bilaterally. Lungs:? CTA b/l no wheezing rhonchi or rales. Cardio:?RRR no m/r/g. Abdomen: S NT ND. No CVA tenderness. Musculoskeletal:? Muscle strength and tone are equal within normal limits, no deformity. Extremities: No edema or joint effusions. No cyanosis or clubbing. Skin:? Pale,? Warm to touch,dry and intact without rashes, ulcerations or petechiae.? Neuro:? Alert and orientated x3,? sensation to touch intact in all extremities, no gross deficits noted of cranial nerves. Psych:? Patient has a well-kept appearance, appropriate affect, mental status attitude thought context and judgment are appropriate for age. Objective Labs 07/24/24 08:11 07/24/24 08:11 Labs: Laboratory Results - last 24 hr 07/23/24 07/23/24 07/23/24 09:30 09:55 10:40 WBC 7.7 RBC 5.57 Hgb 16.7 Hct 48.5 MCV 87.1 MCH 30.0 MCHC 34.4 RDW 13.8 Plt Count 180 Neut % (Auto) 59.6 Lymph % (Auto) 26.6 [place] % (Auto) 8.5 Eos % (Auto) 4.1 H Baso % (Auto) 1.2 Neut # (Auto) 4600 Lymph # (Auto) 2100 [place] # (Auto) 700 Eos # (Auto) 300 Baso # (Auto) 100 PT 12.2 INR 1.1 APTT 32 Sodium 134 L Potassium 3.9 Chloride 103 Carbon Dioxide 20 L BUN 20 Creatinine 1.10 Estimated GFR > 60 BUN/Creatinine Ratio 18.2 Glucose 167 H Calcium 9.9 Total Bilirubin 2.0 H AST 26 ALT 21 Alkaline Phosphatase 97 Total Creatine Kinase 38 L Troponin I < 0.012 Total Protein 7.9 Albumin 4.4 Globulin 3.5 Albumin/Globulin Ratio 1.3 Urine Color Yellow Urine Appearance Clear Urine pH 5.5 Ur Specific [place] 1.010 Urine Protein Negative Urine Glucose (UA) Negative Urine Ketones Negative Urine Occult Blood Negative Urine Nitrate Negative Urine Bilirubin Negative Urine Urobilinogen 0.2 Ur Leukocyte Esterase Negative Urine RBC None seen Urine WBC None seen Ur Squamous Epith Cells None seen Urine Bacteria None seen Ur Culture Indicated? Cult not indicated Vol Urine Centrifuged 10ml (spun) U Opiates 300ng/mL cut Negative Ur Oxycodone Screen Negative Urine Methadone Screen Negative Ur Barbiturates Screen Negative U Tricyclic Antidepress Negative Ur Phencyclidine Scrn Negative Ur Amphetamines Screen Negative U Methamphetamines Scrn Negative Ur MDMA Scrn (Ecstasy) Negative U Benzodiazepines Scrn Negative Urine Cocaine Screen Negative U Marijuana (THC) Screen Negative Urine Specific [place] Ethyl Alcohol 30 H Ur Creatinine SARS-CoV-2 (PCR) Negative 07/23/24 10:40 WBC RBC Hgb Hct MCV MCH MCHC RDW Plt Count Neut % (Auto) Lymph % (Auto) [place] % (Auto) Eos % (Auto) Baso % (Auto) Neut # (Auto) Lymph # (Auto) [place] # (Auto) Eos # (Auto) Baso # (Auto) PT INR APTT Sodium Potassium Chloride Carbon Dioxide BUN Creatinine Estimated GFR BUN/Creatinine Ratio Glucose Calcium Total Bilirubin AST ALT Alkaline Phosphatase Total Creatine Kinase Troponin I Total Protein Albumin Globulin Albumin/Globulin Ratio Urine Color Urine Appearance Urine pH Normal Ur Specific [place] Urine Protein Urine Glucose (UA) Urine Ketones Urine Occult Blood Urine Nitrate Urine Bilirubin Urine Urobilinogen Ur Leukocyte Esterase Urine RBC Urine WBC Ur Squamous Epith Cells Urine Bacteria Ur Culture Indicated? Vol Urine Centrifuged U Opiates 300ng/mL cut Ur Oxycodone Screen Urine Methadone Screen Ur Barbiturates Screen U Tricyclic Antidepress Ur Phencyclidine Scrn Ur Amphetamines Screen U Methamphetamines Scrn Ur MDMA Scrn (Ecstasy) U Benzodiazepines Scrn Urine Cocaine Screen U Marijuana (THC) Screen Urine Specific [place] Normal Ethyl Alcohol Ur Creatinine Normal SARS-CoV-2 (PCR) [facility] Medical History (Updated 07/23/24 @ 18:38 by David Castellano DO) TIA (transient ischemic attack) HTN (hypertension) Social History household members: spouse Smoking Status: Current some day smoker Discharge Plan Discharge Plan Patient Disposition: Home Provider Discharge Comment: You were admitted to the hospital with a TIA. No recurrent symptoms noted. Please follow up with PCP as soon as possible after discharge, they may order a holter monitor for additional evaluation. Otherwise continue aspirin and plavix for 21 days, along with change in statin medication. Please continue aspirin and statin therapy lifelong from here. Your BP was a bit low overnight, do not recommend any BP medications at this time. Discharge orders & Medications Prescriptions: New aspirin 81 mg Tablet,Delayed Release (Dr/Ec) 81 mg PO DAILY 90 Days Qty: 90 0RF atorvastatin 80 mg tablet 80 mg PO BEDTIME 90 Days Qty: 90 0RF clopidogrel [Plavix] 75 mg tablet 75 mg PO DAILY 21 Days Qty: 21 0RF Follow up/Referrals: Judy Carlson, PA-C [Primary Care Provider] - Diet/Activity/Treatments Diet: Diet as Tolerated and Regular Activity: As tolerated, no restrictions Visit Report/Discharge Packet Stand Alone Forms: Patient Portal/API, Stroke Signs & Symptoms Discharge Data Primary Care Provider: Judy Carlson Attending Provider: David Ritter Date/Time: 07/23/24 11:52 Quality VTE Deep Vein Thrombosis/Pulmonary Embolism Present on Admission: No
[2024-07-24 08:42] LABS: Add Manual Diff / Slide Review NO; Basophils Absolute Auto 100 /uL (0-100); Basophils Percent Auto 1.2 % (0-2); Eosinophils Absolute Auto 400 /uL (0-450); Eosinophils Percent Auto 5.3 % (2-4); Hematocrit 47.2 % (41-53); Hemoglobin 16.3 g/dL (13.5-17.5); Lymphocytes Absolute Auto 1200 /uL (1100-4500); Lymphocytes Percent Auto 17.5 % (25-40); Mean Corpuscular HGB Conc 34.5 % (30-36); Mean Corpuscular Hemoglobin 29.9 PG (26-34); Mean Corpuscular Volume 86.8 fL (80-100); Monocytes Absolute Auto 600 /uL (0-900); Monocytes Percent Auto 9.1 % (3-14); Neutrophils Absolute Auto 4500 /uL (1500-7000); Neutrophils Percent Auto 66.9 % (50-75); Platelet Count 162 X10^3/uL (150-400); Red Blood Cell Count 5.44 X10^6/uL (4.5-5.9); Red Cell Distribution Width 13.9 % (11.6-14.8); White Blood Cell Count 6.8 X10^3/uL (4.5-11.0)
[2024-07-24 08:44] LABS: BUN Creatinine Ratio 17.4 (6-22); Blood Urea Nitrogen 20 mg/dL (9-20); Calcium 9.7 mg/dL (8.4-10.2); Carbon Dioxide 23 mmol/L (22-32); Chloride 105 mmol/L (98-107); Cholesterol 201 mg/dL (140-199); Estimated Glomerular Filt Rate > 60 mL/min (>60); Glucose 108 mg/dL (80-110); HDL Cholesterol 45 mg/dL (40-60); HEMOLYSIS < 15 (0-50); LDL Cholesterol Calculated 137 mg/dL (<100); Potassium 4.5 mmol/L (3.4-5.1); Sodium 136 mmol/L (137-145); Triglycerides 96 mg/dL (35-150)
[2024-07-24 09:08] LABS: Hemoglobin A1C% w Est Avg Glu 5.3 % (4.0-6.0)
--- NOTE | 2024-07-24 09:36 | CM.DANOTE ---
DCP Assessment Note Brief Pt is a 88yo M here following suspected TIA after experiencing some facial droop and slurred speech. symptoms resolved, and pt eager to dc home. PCP Judy Carlson Payer Medicare and self pay [employer] reviewed EMR. Per chart, pt to dc home today with close OP f/u. Per RN, pt indep in room, eager to dc home, spouse on way to pick him up. No likely CM needs P: home with spouse support and close OP f/u recommended. No identified barriers to safe dc home identified at this time. CM team will continue to follow as needed GRECIA Hsu Discharge Planning/Care Management CM Discharge Assessment Start: 07/24/24 09:35 Freq: Status: Active Protocol: Document 07/24/24 09:35 (Rec: 07/24/24 09:35 [id number]) Discharge Planning Assessment Assigned Manager [employer] GRECIA [place] DPOA/Assigned Designee Name Yancy, spouse Contact Information [phone] Advance Directives? No History Provided By Patient Prior Living Arrangements House Household Members spouse Type of transporation used prior to Drives own vehicle admit Independent with ADL's Yes Is patient alert and oriented? Yes Discharge Plan Home Transportation Arrangement spouse in POV Referrals Initiated None needed Review Status In Process Please Provide Date Initial DC 07/24/24 Assessment Was Performed Next Review Type Continued Stay Review
[2024-07-24 09:37] LABS: TSH w/ Reflex to FT4 1.37 uIU/mL (0.47-4.68)
--- NOTE | 2024-07-24 09:45 | PC.NURSE ---
D/c instructions reviewed with Pt. Discussed s/s of stroke and importance of calling 911. IV removed. Pt dressed independently, confirmed he had all belongings. Pt refused w/c, exited with RN to ED entrance to wait for private vehicle.
== END 2024-07-24 09:50 | disposition home or self-care (01) ==
LOC: ED 11:40 → AC 11:52
PROVIDERS: Admitting Provider Internal Medicine; Emergency Provider Student in an Organized Health Care Education/Training Program; PCP Physician Assistant; Referring Provider Student in an Organized Health Care Education/Training Program; Visit Provider Internal Medicine
DX: G45.9 Transient cerebral ischemic attack, unspecified (principal); R29.700 NIHSS score 0; E80.7 Disorder of bilirubin metabolism, unspecified; E78.5 Hyperlipidemia, unspecified; I10 Essential (primary) hypertension; Z91.148 Patient's other noncompliance with medication regimen for other reason; F17.210 Nicotine dependence, cigarettes, uncomplicated; Z86.73 Personal history of transient ischemic attack (TIA), and cerebral infarction without residual deficits; Z11.52 Encounter for screening for COVID-19; Z23 Encounter for immunization
CPT/HCPCS: 36415; 70450; 70496; 70498; 70551; 80048; 80053; 80061; 80305; 80320; 81001; 81003; 82550; 82962; 83036; 83735; 84443; 84484; 85025; 85610; 85730; 87635; 90471; 90662; 93005; 93306; 99285; G0378; Q9967